=== PATIENT | male | born 1940 ===

== ENCOUNTER → 2021-05-12 09:41 | Outpatient (BNVA) | payer MEDICARE, SELFPAY | PROVIDERS: Referring Provider Physician Assistant Medical; Visit Provider Specialist | DX: G56.03 Carpal tunnel syndrome, bilateral upper limbs (principal); R20.2 Paresthesia of skin | CPT/HCPCS: 95910 ==

== ENCOUNTER → 2021-08-04 13:53 | Outpatient (BNVA) | payer MEDICARE, SELFPAY | PROVIDERS: Referring Provider Family Medicine; Visit Provider Specialist | DX: M18.9 Osteoarthritis of first carpometacarpal joint, unspecified (principal) | CPT/HCPCS: 73110 ==

== ENCOUNTER 2021-10-06 15:37 | Outpatient (CLI) | payer MEDICARE, SELFPAY | END 2021-10-06 15:38 | disposition home or self-care (01) | LOC: SPT 15:38 | PROVIDERS: Visit Provider Specialist | DX: Z46.89 Encounter for fitting and adjustment of other specified devices (principal); G56.03 Carpal tunnel syndrome, bilateral upper limbs | CPT/HCPCS: 87635; 97760; L3908 ==

== ENCOUNTER → 2021-11-03 00:01 | Outpatient (BNVA) | payer MEDICARE, SELFPAY | PROVIDERS: Visit Provider Specialist | DX: Z20.822 Contact with and (suspected) exposure to COVID-19 (principal); G56.01 Carpal tunnel syndrome, right upper limb; M65.331 Trigger finger, right middle finger | CPT/HCPCS: 87635 ==

== ENCOUNTER 2021-11-07 06:39 | Day surgery (SDC) | payer MEDICARE, SELFPAY ==
[2021-11-06 12:22] VITALS: BMI 26.4
[2021-11-07 06:56] VITALS: BP 138/95; PULSE 83; RESP 18; TEMP 36.3; O2SAT 93
[2021-11-07] MEDS: acetaminophen 1,000 MG/100 ML PIGGYBACK 400 MG IV (07:25)
[2021-11-07] MEDS: sodium chloride 0.9% 1,000 ML 30 ML IV (07:26)
[2021-11-07] MEDS: CELEcoxib 200 mg Capsule 400 MG PO (07:27)
--- NOTE | 2021-11-07 07:35 | P.ANESASSM_ITS ---
Pre-Anesthetic Assessment Height/Weight: Height 1.8 m Weight 86.183 kg Temp Pulse Resp BP Pulse Ox 97.3 F L 83 18 138/95 93 11/07/21 06:56 11/07/21 06:56 11/07/21 06:56 11/07/21 06:56 11/07/21 06:56 Preop Diagnosis: Right carpal tunnel syndrome, right long finger triggering Operation Date: 11/07/21 08:10 Proposed Procedures p Carpal Tunnel Release 78957 G56.00(Right) - Kristin Argueta MD s Trigger Finger Release right long finger & small finger M65.30 19199(Right) - Kristin Argueta MD Familial anesthetic complications: None Was Beta Joana taken within 24 hours: N/A Was Clonidine taken within 24 hours: N/A Last intake: Intake Last Liquid Date 11/06/21 Last Liquid Time 20:00 Last Solid Date 11/06/21 Last Solid Time 20:00 Social No alcohol and No tobacco Exam alert, oriented x 3, clear to auscultation bilaterally and regular rate & rhythm Airway Submandibular: within normal limits Cervical ROM: within normal limits Mallampati: Class II Dentition: chipped Comments: Comments: Missing several CV/HEM Deep Vein Thrombosis and Hypertension GI Gastroesophageal Reflux Disease Metabolic Thyroid Disease [facility] Rheumatoid Arthritis Anesthetic Plan ASA status: 3 Anesthesia: MAC and Regional (specify below) ([place]) Medications/Allergies Home Medications Medication Instructions Recorded Confirmed Last Taken Type amitriptyline 10 mg tablet 10 mg PO .hs tab 05/12/21 11/07/21 11/06/21 History butalbital 50 mg-acetaminophen 325 1 cap PO Q8H PRN cap 05/12/21 11/07/21 11/05/21 History mg-caffeine 40 mg-codeine 30 mg cap docusate sodium 100 mg capsule 100 mg PO DAILY 05/12/21 11/07/21 11/06/21 History fluticasone propionate 50 1 spray INTRANASAL BID 05/12/21 11/07/21 11/07/21 History mcg/actuation nasal spray,suspension (Flonase Allergy Relief) gabapentin 100 mg capsule 100 mg PO TID 05/12/21 11/07/21 11/06/21 History hydrocodone 10 mg-acetaminophen 1 tab PO Q8H PRN 05/12/21 11/07/21 11/07/21 History 325 mg tablet hydroxychloroquine 200 mg tablet 200 mg PO DAILY 05/12/21 11/07/21 11/06/21 History levothyroxine 50 mcg capsule 50 mcg PO DAILY 05/12/21 11/07/21 11/06/21 History lisinopril 20 mg tablet 20 mg PO DAILY 05/12/21 11/07/21 11/06/21 History omeprazole 20 mg capsule,delayed 20 mg PO DAILY 05/12/21 11/07/21 11/06/21 History release trazodone 100 mg tablet 200 mg PO .HS tab 05/12/21 11/07/21 11/06/21 History warfarin 4 mg tablet 4 mg PO .COMPLEX 05/12/21 11/07/21 11/02/21 History warfarin 5 mg tablet 5 mg PO .COMPLEX 05/12/21 11/07/21 11/02/21 History cock up splint #1 ea 10/06/21 11/03/21 Unknown Rx Allergies Allergy/AdvReac Type Severity Reaction Status Date / Time No Known Allergies Allergy Verified 11/06/21 11:19 Current Medications Generic Name Dose Route Start Last Admin Trade Name Freq PRN Reason Stop Dose Admin Sodium Chloride 1,000 mls @ 30 mls/hr 11/07/21 07:00 11/07/21 07:26 Sodium Chloride 0.9% IV 11/08/21 06:59 30 mls/hr .Q24H IVONNE Administration Data Anesthesia Cardiac Studies: No Data to Display
--- NOTE | 2021-11-07 07:56 | W.PM.OPSUD ---
Surgery/Procedure H&P Update DATE OF PROCEDURE: November 07, 2021 DATE H&P PERFORMED: 11/03/21 H&P UPDATE INFORMATION: I have reviewed H&P completed within last 30 days, I have examined patient prior to procedure, No changes to prior documentation and H&P is in [facility] on date indicated PREOP DIAGNOSIS: Right carpal tunnel syndrome, right long and small finger triggering PLANNED PROCEDURE: Operation Date: 11/07/21 08:10 Proposed Procedures p Carpal Tunnel Release 43539 G56.00(Right) - Kristin Argueta MD s Trigger Finger Release right long finger & small finger M65.30 14234(Right) - Kristin Argueta MD Related Problem List Diagnoses (1) Carpal tunnel syndrome on right: (2) Trigger finger, right middle finger: (3) Trigger finger, right little finger:
[2021-11-07 09:43] VITALS: BP 159/77; PULSE 53; RESP 16; TEMP 36.4; O2SAT 94
[2021-11-07 09:47] VITALS: BP 160/88; PULSE 52; RESP 16; O2SAT 93
[2021-11-07 09:51] VITALS: BP 168/80; PULSE 54; RESP 16; TEMP 37.4; O2SAT 92
[2021-11-07 09:55] VITALS: BP 161/84; PULSE 52; RESP 18; TEMP 36.2; O2SAT 94
--- NOTE | 2021-11-07 10:01 | P.OP_ITS ---
Operative Report Date of procedure: November 07, 2021 Pre-op diagnosis: Right carpal tunnel syndrome, right long and small finger triggering Post-op diagnosis: same Post-op findings: Significant compression across the median nerve, very tight A1 pulleys. Procedure done: Right carpal tunnel wrist. Release right long and small trigger finger Pathology: none sent Surgeon: Kristin Argueta Package Delivery Room Service Runner: None Anesthesia: MAC (With [place] block, ASA 3) Estimated blood loss (mL): 5 Tourniquet time (min): 70 (At 250 mmHg) IV fluids (mL): 700 Urine output (mL): 0 (No Zepeda) Complications: None Condition: stable Disposition: PACU (Then to same-day surgery for discharge to home) Brief History: This 80-year-old gentleman presented to my office complaining of symptoms consistent with right carpal tunnel syndrome. At that time, he also complained of long finger triggering. After discussion. The patient wished to proceed with operative intervention in the form of carpal tunnel release and release of his right long trigger finger. When he returned for preoperative evaluation, he also complained that his small finger was triggering and interfering with his activities of daily living. It was also quite painful for him. He wished to proceed with surgical intervention, but wished to have both trigger fingers released which included the long and small fingers of the right hand. Questions were answered and consents were signed. Procedure: Patient was brought to the operating theater. He was placed on the operating ro om table. A MAC anesthesia with [place] block was administered without difficulty. Patient tolerated it well. Ancef 2 g was given preoperatively prophylactically. A tourniquet was placed high on the arm and was elevated for the [place] block. Tourniquet time was 70 minutes. The arm was then prepped and draped with DuraPrep in usual fashion with the arm draped free. Surgical pause was performed prior to commencement of the surgical procedure. At the time of the surgical pause we identified the site and side of surgery. We also identified the patient's identity, preoperative surgical markings,and appropriate administration of IV antibiotics. Following the surgical pause, an incision was made along the thenar crease. The incision crossed the wrist joint in a curvilinear fashion. Dissection continued through skin and soft tissues using a scalpel. The palmaris longus was identified along with the transverse carpal ligament. Each of these was released carefully to avoid injury to the median nerve. We were able to dissect gently into the carpal canal which was noted to be quite tight with significant compression across the median nerve. The nerve was visualized and was an hourglass shape. Additionally, the motor branch of the median nerve initiated very proximally and entered the transverse ligament to the medial aspect of the incision into that transverse carpal ligament. After release, the canal was subsequently palpated to assure there was no bony encroachment upon the canal. There was a quite thickened fibrous tissue within the canal, and this was opened longitudinally as well. The canal was then palpated distally and proximally to assure that my small finger was passed easily without impingement. Finding this to be so, attention was directed to closure. The wound was irrigated with ropivacaine plain. It was then closed with 3-0 nylon in an interrupted mattress fashion. Incisions were made along the distal palmar crease beneath the long and small fingers. Dissection continued through the skin to the subcutaneous tissues using a scalpel. Blunt dissection was then utilized to spread soft tissues and allow access to the A1 nathan. We started with a small finger, and then after this was addressed, the long finger was addressed. Each A1 nathan was identified. An nathan on each finger was then incised longitudinally and sharply using a knife. This was accomplished without difficulty and atraumatically. Once the A1 nathan was released, tendons were brought up out of the wound and evaluated. There were no gross masses on the tendons. Tendons were returned to normal position. We then irrigated the wound of each finger and subsequently closed them with 3-0 nylon with an interrupted mattress type suture. Following closure of the wounds, each wound was injected with 3 mL of bupivacaine into the subcutaneous tissues as a local anesthetic. Sterile dressing was then placed consisting of Opsite, fluffed fluffs, sterile soft roll, and an [place] wrap. The patient was returned to recovery in satisfactory condition. He will be discharged home to follow-up with me in the office. There were no complications and no specimens. Related Problem List Diagnoses (1) Carpal tunnel syndrome on right: (2) Trigger finger, right middle finger: (3) Trigger finger, right little finger:
[2021-11-07 10:23] VITALS: BP 151/88; PULSE 66; RESP 18; TEMP 36.2; O2SAT 95
--- NOTE | 2021-11-07 14:18 | ANE.PACU2 ---
Inpatient post-anesthesia follow up: Airway intact: Yes Vital signs: Temperature 97.2 F Pulse Rate 66 Respiratory Rate 18 Blood Pressure 151/88 Pulse Oximetry 95 Oxygen Delivery Me thod Room Air Oxygen Flow Rate Fraction of Inspir ed Oxygen Hydration adequate: Yes Nausea and vomiting: No Pain level: 2 Mental status: Baseline
== END 2021-11-07 10:55 | disposition home or self-care (01) ==
PROVIDERS: PCP Family Medicine; Visit Provider Specialist
PROC: (CPT 64721; principal; 2021-11-07 08:10)
PROC: (CPT 26055; 2021-11-07 08:10)
DX: G56.01 Carpal tunnel syndrome, right upper limb (principal); M65.331 Trigger finger, right middle finger; M65.351 Trigger finger, right little finger; Z86.718 Personal history of other venous thrombosis and embolism; I10 Essential (primary) hypertension; Z79.01 Long term (current) use of anticoagulants
CPT/HCPCS: 26055 ×2; 64721; J0690; J2704; J3010; J3490; J7030